=== PATIENT | male | born 1960 | race Caucasian/White ===

== ENCOUNTER 2018-06-17 13:16 | Emergency (ER) | payer OTHER ==
[~2018-06-17] VITALS: Ht 175.3 cm; Wt 81.9 kg
--- NOTE | 2018-06-17 14:00 | NUR ---
called for room, no answer.
--- NOTE | 2018-06-17 14:25 | NUR ---
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
[2018-06-17] MEDS ORDERED: LIDOCAINE 1%, 10ML INFIL ONE (15:30)
[2018-06-17] MEDS ORDERED: SODIUM CHLORIDE FLUSH 10ML SYR IVF ONE (15:30)
[2018-06-17] MEDS ORDERED: SODIUM CHLORIDE 0.9% 1,000ML IVBOLUS ONE (15:30)
[2018-06-17] MEDS ORDERED: COLCHICINE 0.6 MG TABLET PO ONE (15:30)
[2018-06-17] MEDS ORDERED: ACETAMINOPHEN 325 MG TABLET PO ONE (15:30)
[2018-06-17] MEDS ORDERED: LIDOCAINE-MPF 1%, 2ML ONE (15:45)
[2018-06-17] MEDS ORDERED: ACETAMINOPHEN 325 MG TABLET ONE (15:45)
[2018-06-17] MEDS ORDERED: COLCHICINE 0.6 MG TABLET ONE (15:46)
[2018-06-17 16:11] LABS: HCT (SEDRATE) 42.7 % (39.2-51.8)
[2018-06-17 16:13] LABS: BASOPHILS % (AUTO) 0 % (0-1); EOSINOPHILS # (AUTO) 0.02 x10^3/uL (0-0.4); EOSINOPHILS % (AUTO) 0 % (1-7); LYMPHOCYTES # (AUTO) 0.92 x10^3/uL (1-3.4); LYMPHOCYTES % (AUTO) 7 % (22-44); MD NO; MEAN CORPUSCULAR HEMOGLOBIN 34.3 pg (27.5-34.5); MEAN CORPUSCULAR HGB CONC 34.5 g/dL (33.2-36.2); MEAN CORPUSCULAR VOLUME 99.3 fL (81-97); MEAN PLATELET VOLUME 7.8 fL (7.4-10.4); MONOCYTES # (AUTO) 0.76 x10^3/uL (0.2-0.8); MONOCYTES % (AUTO) 6 % (2-9); NEUTROPHILS % (AUTO) 87 % (42-75); PLATELET COUNT 286 x10^3/uL (130-400); RED BLOOD COUNT 4.24 x10^6/uL (4.38-5.82); RED CELL DISTRIBUTION WIDTH 12.6 % (9.4-14.8)
[2018-06-17 16:16] LABS: ALBUMIN 3.9 g/dL (3.4-5.0); CALCIUM 9.5 mg/dL (8.5-10.1)
--- NOTE | 2018-06-17 16:22 | NUR ---
Late entry r/t [employer] down Patient remains safe in bed, NADN, 0/10 pain in RN knee at rest, consent for R knee arthrocentesis at bedside, patient medicated with colcrys, tylenol, and normal saline per JUL. call light in reach.
[2018-06-17 16:26] LABS: ALANINE AMINOTRANSFERASE 18 U/L (12-78); ALKALINE PHOSPHATASE 95 U/L (45-117); BILIRUBIN,TOTAL 0.9 mg/dL (0.2-1.0); CREATININE 0.86 mg/dL (0.7-1.3)
[2018-06-17 17:13] LABS: ANION GAP 9 mmol/L (5-15); CHLORIDE 101 mmol/L (98-107)
--- NOTE | 2018-06-17 17:43 | NUR ---
patient safe in bed, reports increased comfort following arthrocentesis, vss on room air, safety maintained.
--- NOTE | 2018-06-17 19:10 | NUR ---
patient to be discharge by ROSANNE Carter now,
[2018-06-17 19:32] VITALS: BP 181/90
== END 2018-06-17 19:35 | disposition home or self-care (01) ==
LOC: ED 17:04
DX: M25.461 Effusion, right knee (principal); R50.9 Fever, unspecified; R09.81 Nasal congestion; I10 Essential (primary) hypertension; M10.9 Gout, unspecified
CPT/HCPCS: 20610; 36415; 71045; 73564; 80053; 82945; 83605; 83615; 84145; 84157; 84550; 84560; 85025; 85651; 85810; 86141; 87040; 87070; 87205; 89050; 89060; 99284; J7030